=== PATIENT | female | born 1990 | race Caucasian/White ===

== ENCOUNTER 2017-12-09 19:49 | Observation (INO) | payer OTHER ==
[~2017-12-09] VITALS: Ht 162.6 cm; Wt 76.7 kg
--- NOTE | 2017-12-09 21:18 | ED GENERAL ADULT ---
History of Present Illness General Chief Complaint: General Adult Stated Complaint: "BLOOD PLATELETS LOW" PER PT Source: patient, old records Exam Limitations: no limitations Allergies Coded Allergies: No Known Allergies (12/09/17) Triage Note: PT TO TRIAGE SENT IN BY PCP FOR LOW PLATELET COUNT. PER PT WAS AT CHECK UP THIS MORNING EXPLAINING TO DOCTOR ABOUT BRUISING TO LEGS OF UNKNOWN ORIGIN. DENIES HX OF LOW PLATELET COUNT. C/O "LIGHTHEADEDNESS," X2 HOURS. Triage Nurses Notes Reviewed? yes Onset: Gradual Duration: week(s): Timing: recent history Severity: mild : No Patient currently breastfeeds: No HPI: 27yo female with hx of gastritis sent in by PCP for thrombocytopenia. PAtient states she went to her PCP's office for epigastric burning pain for the past week. She states her pain was similar to previous episodes of gastritis she has had in the past. Her primary care doctor started on omeprazole today and she reports some relief of burning pain following medication. Patient told her primary care doctor about various bruises around her body without history of trauma for the past few months. For this reason her primary care doctor ordered labs and platelets were found to be low. Patient has no history of thrombocytopenia or blood disorder. Patient states she has been feeling lightheaded for the past few hours. Patient also reports light vaginal spotting for the past 2 weeks for is not due for her menstrual cycle until 12/14/17. No epistaxis, hematuria, melena, chest pain, dyspnea. (Tawny NO,Rena Douglas) Vital Signs & Intake/Output Vital Signs & Intake/Output Vital Signs Date Time Temp Pulse Resp B/P B/P Pulse O2 O2 Flow FiO2 Mean Ox Delivery Rate 12/10 0053 96.7 88 18 112/64 98 Room Air 12/09 2315 66 20 118/62 97 Room Air 12/09 2001 97.2 72 18 107/70 98 Room Air (Lulu PIERRE,Javon Moore) Past History Travel History Traveled to [place] past 21 day No Medical History Any Pertinent Medical History? none Neurological: NONE EENT: NONE Cardiovascular: NONE Respiratory: NONE Gastrointestinal: NONE Hepatic: NONE Renal: NONE Musculoskeletal: NONE Psychiatric: NONE Endocrine: NONE Blood Disorders: NONE Cancer(s): NONE SASH STICKER/Reproductive: NONE Surgical History Surgical History: non-contributory Psychosocial History What is your primary language Gambian Tobacco Use: Never used Family History Hx Contributory? No (Rena Molina) Review of Systems Review of Systems Constitutional: Reports: see HPI. EENTM: Reports: no symptoms. Respiratory: Reports: no symptoms. Cardiovascular: Reports: no symptoms. GI: Reports: see HPI. Genitourinary: Reports: no symptoms. Musculoskeletal: Reports: no symptoms. Skin: Reports: see HPI. Neurological/Psychological: Reports: no symptoms. Hematologic/Endocrine: Reports: see HPI. Immunologic/Allergic: Reports: no symptoms. All Other Systems: Reviewed and Negative (Rena Molina) Physical Exam Physical Exam General Appearance: well developed/nourished, no apparent distress, alert, awake Head: atraumatic, normal appearance Eyes: Bilateral: normal appearance. Ears, Nose, Throat: hearing grossly normal Neck: normal inspection, supple, full range of motion Respiratory: normal breath sounds, no respiratory distress, lungs clear Cardiovascular: regular rate/rhythm Gastrointestinal: normal bowel sounds, soft, no organomegaly, mild epigastric tenderness Back: normal inspection, normal range of motion Extremities: normal inspection, normal range of motion Neurologic/Psych: awake, alert, oriented x 3 Skin: intact, ecchymosis Comments: : normal external exam, mild amount of vaginal bleeding without clots, vaginal mucosa and cervix WNL Core Measures ACS in differential dx? No CVA/TIA Diagnosis: No Sepsis Present: No Sepsis Focused Exam Completed? No (Rena Molina) Progress Differential Diagnoses I considered the following diagnoses in my evaluation of the patient: [ Thrombocytopenia, ITP, TTP, H. pylori, gastritis] Initial ED EKG: none (Rena Molina) Plan of Care: Orders Procedure Date/time Status Regular Diet 12/10 B Active Patient Data 12/[address] in observation 12/09 2350 Active Misc Message 12/09 2350 Active ED Holding Orders 12/09 2350 Active Vital Signs 12/09 2350 Active Code Status 12/09 2350 Active Add-on Test (ER Only) 12/09 2249 Active THYROID STIMULATING HORMONE 12/09 2222 Active HIV (Reflex to HIVCQ) 12/09 222 Active HEPATITIS PANEL 12/09 222 Active HUMAN BETA HCG SCREEN 12/09 222 Active FREE T4 12/09 222 Active COMPREHENSIVE METABOLIC PANEL 12/09 2202 Active CBC WITHOUT DIFFERENTIAL 12/09 2202 Complete TYPE & SCREEN (NOT X-MATCH) 12/09 2202 Complete Intake & Output 12/10 2155 Active Laboratory Tests 12/09/172221: Anion Gap 12, Estimated GFR > 60, BUN/Creatinine Ratio 14.3, Glucose 109 H, Calcium 9.5, Total Bilirubin 0.2, AST 18, ALT 15, Alkaline Phosphatase 50, Total Protein 7.0, Albumin 3.8, Globulin 3.2, Albumin/Globulin Ratio 1.2, TSH 2.070, Free T4 1.48, Total Beta HCG NEGATIVE, CBC w Diff NO MAN DIFF REQ, RBC 4.24, MCV 89.9, MCH 30.2, MCHC 33.6, RDW 12.8, MPV 15.5 H, Gran % 61.1, Lymphocytes % 30.1, Monocytes % 5.9, Eosinophils % 2.4, Basophils % 0.5, Absolute Granulocytes 4.6, Absolute Lymphocytes 2.3, Absolute Monocytes 0.4, Absolute Eosinophils 0.2, Absolute Basophils 0, Hepatitis A IgM Ab Pending, Hep Bs Antigen Pending, Hep B Core IgM Ab Conf Pending, Hepatitis C Antibody Pending, HIV 1&2 Ab Western Blot NONREACTIVE Spoke with Dr. Segura regarding this patient's abnormal labs. He recommends thyroid panel, hepatitis panel, HIV testing, H. pylori stool testing, decadron PO, inpatient observation for follow-up tomorrow. Spoke with Dr. Bryant regarding this patient's general medicine observation. Dr. Lawson agrees with the plan of care. (Rena Molina) (Lulu PIERRE,Javon Moore) Departure Departure Disposition: STILL A PATIENT Condition: Stable Clinical Impression Primary Impression: Thrombocytopenia Secondary Impressions: Vaginal spotting Referrals: Makenzie Enriquez DO (PCP/Family) Departure Forms: Customer Survey General Discharge Information Observation Note Spoke With: Du Bryant MD Physician Advisor Notified: JAVON CASTILLO DO Place Patient In: Non-ED OBS Care Area Rationale for Observation: My rational for observation is as follows [new-onset thrombocytopenia with vaginal spotting requiring repeat labs, steroid treatment, hematology consult, follow-up with H. pylori stool testing]. (Rena Molina) PA/AUTO SPECIALTY SERVICES MANAGER Co-Sign Statement Statement: ED Attending supervision documentation- [X] I saw and evaluated the patient. I have also reviewed all the pertinent lab results and diagnostic results. I agree with the findings and the plan of care as documented in the PA's/AUTO SPECIALTY SERVICES MANAGER's documentation. Patient presents for evaluation of low platelet count as part of an evaluation for easy bruising. Physical examination reveals a comfortable appearing patient in no respiratory distress. There is no indication of altered mental status. [] I have reviewed the ED Record and agree with the PA's/AUTO SPECIALTY SERVICES MANAGER's documentation. [] Additions or exceptions (if any) to the PAs/AUTO SPECIALTY SERVICES MANAGER's note and plan are summarized below: [] (Lulu PIERRE,Javon Moore) Critical Care Note Critical Care Note Critical Care Time: non-applicable (Tawny NO,Rena Douglas)
[2017-12-09 22:28] LABS: ABSOLUTE BASOPHIL COUNT 0 /CUMM (0.0-0.2); ABSOLUTE EOSINOPHIL COUNT 0.2 /CUMM (0.0-0.7); ABSOLUTE GRANULOCYTE CT 4.6 /CUMM (1.4-6.5); ABSOLUTE LYMPH COUNT 2.3 /CUMM (1.2-3.4); ABSOLUTE MONOCYTE COUNT 0.4 /CUMM (0.10-0.60); BASOPHIL % 0.5 % (0.0-2.0); EOSINOPHIL % 2.4 % (0-5); GRANULOCYTE % 61.1 % (42.2-75.2); HEMATOCRIT 38.1 % (37-47); MEAN CORPUSCULAR HGB 30.2 PG (27.0-31.0); MEAN CORPUSCULAR HGB CONC 33.6 G/DL (33.0-37.0); MEAN CORPUSCULAR VOLUME 89.9 FL (81.0-99.0); MEAN PLATELET VOLUME 15.5 FL (7.4-10.4); RBC DISTRIBUTION WIDTH 12.8 % (11.5-14.5); RED BLOOD CELL CT 4.24 /CUMM (4.20-5.40); WHITE BLOOD CELL COUNT 7.5 /CUMM (4.8-10.8)
[2017-12-09 22:48] LABS: PLATELET COUNT 42 /CUMM (130-400)
[2017-12-10 02:12] VITALS: BP 106/62
--- NOTE | 2017-12-10 02:28 | History & Physical ---
Trish Croft MD 12/10/17 0228: General Information and HPI MD Statement: I have seen and personally examined BROOKLYN NETTLES and documented this H&P. The patient is a 27 year old F who presented with a patient stated chief complaint of low platelets and bruising Source of Information: patient, family, old records Exam Limitations: no limitations History of Present Illness: This is a 27-year-old female with a past medical history significant for gastritis that comes to see us for vaginal spotting for 1 week and bruising of several months duration. The patient states that the bruising began in early September on her lower extremities. She now has some bruising as well on her arms. The patient denies any kind of injury recently. She also states that she has had vaginal "spotting" even though her menses are not due for one week. The patient is on control and states that her periods are usually very regular. She recently started a keto diet of high fat, moderate protein, low carbohydrate and states that after starting this was when the spotting began. After noticing this, she began adding carbohydrates back to her diet. The day after adding carbs, she noted that she had severe pain that was in the epigastrium and is similar to her normal gastritis associated pain. The patient states that she lost 8 pounds on this keto diet. The patient recently visited her PCP Makenzie Enriquez DO who did labs, notably hemoglobin was normal, normal iron levels, but severely decreased platelets level of 25. When this lab returned, Makenzie Enriquez DO suggested that the patient come to the [facility]. The patient states that she does feel weak and has recently had some lightheadedness even when sitting down. The patient also notes that she is recently been having migraines even though she does have a positive history throughout her life. She also notes a cough of one week's duration, no chest pain. The patient denies any other bleeding besides the vaginal spotting, no stool blood, no nausea or vomiting. The patient has no history of H. pylori infection. The patient does admit to abdominal pain and notes that it is of an "acidic" nature. She has had gastritis and she was 17 with pain mostly in the left upper quadrant. The patient recently started omeprazole for GERD with her first dose today. As stated previously, patient went to [place] in September to October. She denies any sick contacts. The patient also denies any vaginal discharge associated with the bleeding, no recent STDs, was screened 3 months ago, had a Pap smear 3 years ago which was normal, has had 1 , vaginal , no complications, no miscarriages, no abortions. No urinary symptoms. The patient states that she recently went hiking outside and [place] 1.5 weeks ago. Afterwards she was checked for ticks but notes that ticks were found on her son and her dog. She has never had a tick bite in the past. The patient also states that she had excruciating knee pain for one days duration a few days back. The patient denies any new sexual partners, no STDs. Other than the omeprazole, no new medications. Allergies/Medications Allergies: Coded Allergies: No Known Allergies (12/09/17) Past History Travel History Traveled to [place] past 21 day No Medical History Blood Transfusion Hx: No Neurological: NONE EENT: NONE Cardiovascular: NONE Respiratory: NONE Gastrointestinal: gastritis Hepatic: NONE Renal: NONE Musculoskeletal: NONE Psychiatric: NONE Endocrine: NONE Blood Disorders: NONE Cancer(s): NONE TALENT ACQUISITION PROGRAM MANAGER/Reproductive: NONE Surgical History Surgical History: non-contributory Past Family/Social History Family History Relations & Conditions if any Family history was reviewed; no changes noted. Psychosocial History Smoking Status: Never Smoked ETOH Use: occasional use Illicit Drug Use: denies illicit drug use Review of Systems Review of Systems Constitutional: Reports: no symptoms. EENTM: Reports: no symptoms. Cardiovascular: Reports: no symptoms. Respiratory: Reports: cough. GI: Reports: abdominal pain. Genitourinary: Reports: no symptoms. Musculoskeletal: Reports: joint pain. Skin: Reports: no symptoms. Neurological/Psychological: Reports: headache. Hematologic/Endocrine: Reports: bruising, bleeding. Immunologic/Allergic: Reports: no symptoms. All Other Systems: Reviewed and Negative Date of LMP: 11/16/17 Post Menopausal: No Date of Last Pap Smear: 12/11/14 Exam & Diagnostic Data Last 24 Hrs of Vital Signs/I&O Vital Signs Date Time Temp Pulse Resp B/P B/P Pulse O2 O2 Flow FiO2 Mean Ox Delivery Rate 12/10 0212 98.7 66 18 106/62 96 Room Air 12/10 0053 96.7 88 18 112/64 98 Room Air 12/09 2315 66 20 118/62 97 Room Air 12/09 2001 97.2 72 18 107/70 98 Room Air Intake & Output 12/10 0800 12/10 0000 12/09 1600 Intake Total Output Total Balance Patient 169 lb Weight Physical Exam General Appearance Alert, Oriented X3, Cooperative, No Acute Distress Skin No Rashes, scattered bruising on lower extremities with 2 bruises on her arms where she recently had IVs attempted Skin Temp/Moisture Exam: Warm/Dry Sepsis Skin Exam (color): Normal for Ethnicity HEENT Atraumatic, PERRLA, EOMI, Mucous Membr. moist/pink Neck Supple, No JVD Cardiovascular Regular Rate, Normal S1, Normal S2, No Murmurs Lungs Clear to Auscultation, Normal Air Movement Abdomen Normal Bowel Sounds, Soft, No Tenderness, No Hepatospenomegaly, No Masses Neurological Normal Speech Extremities No Clubbing, No Cyanosis, No Edema, Normal Pulses Vascular Normal Pulses, Pulses Symmetrical Reproductive (FEMALE) mild bleeding on genital exam, no clots Last 24 Hrs of Labs/Armaan: Laboratory Tests 12/09/17 2222: Anion Gap 12, Estimated GFR > 60, BUN/Creatinine Ratio 14.3, Glucose 109 H, Calcium 9.5, Total Bilirubin 0.2, AST 18, ALT 15, Alkaline Phosphatase 50, Total Protein 7.0, Albumin 3.8, Globulin 3.2, Albumin/Globulin Ratio 1.2, TSH 2.070, Free T4 1.48, Total Beta HCG NEGATIVE, CBC w Diff NO MAN DIFF REQ, RBC 4.24, MCV 89.9, MCH 30.2, MCHC 33.6, RDW 12.8, MPV 15.5 H, Gran % 61.1, Lymphocytes % 30.1, Monocytes % 5.9, Eosinophils % 2.4, Basophils % 0.5, Absolute Granulocytes 4.6, Absolute Lymphocytes 2.3, Absolute Monocytes 0.4, Absolute Eosinophils 0.2, Absolute Basophils 0, Hepatitis A IgM Ab Pending, Hep Bs Antigen Pending, Hep B Core IgM Ab Conf Pending, Hepatitis C Antibody Pending, HIV 1&2 Ab Western Blot NONREACTIVE Assessment/Plan Assessment: This is a 27-year-old female with a past medical history significant for gastritis that comes to see us for vaginal spotting for 1 week and bruising of several months duration. The patient was recently on a new diet and attributes that to the vaginal spotting. Her bruising is started 4 months ago before she went on a trip to [place]. Patient has no new medications other than omeprazole. The patient was recently on a hiking trip and notes that her family members had ticks but she did not. The patient also notes a recent history of headache, 1 day of excruciating joint pain, recent cough. The patient has no family history of bleeding disorders or cancers. Vital signs temperature 97.2, pulse rate 72, respiratory rate 18, blood pressure 107/70, 98% oxygen saturation on room air. Labs were normal except for a platelet count of 42 here a count of 25 found at her PCPs office. Her INR was found to be normal at 1.18, chem panel was found to be normal, thyroid tests normal, liver function tests normal, HIV test negative. In the ED as per recommendation by manager etl, patient was given dexamethasone 8 mg by mouth once. Patient's is placed in Gen. medical floors for observation of the following: #Thrombocytopenia likely secondary to ITP as no cause was found for patient thrombocytopenia. Patient recently started omeprazole which could potentially cause thrombocytopenia, however today was her first dose and this likely would not be reflected in today's platelet count. Additionally tick bite was considered as patient noted that she recently was hiking in the [place] nearby. Patient has no history of drug or excessive alcohol use, no liver pathology. Plan -Normal saline at a rate of 75 mL per hour -Hematology/oncology is aware and will see the patient in the morning -Hepatitis panel and LFTs -Peripheral smear -Antinuclear antibody for vasculitis/SLE Regular diet DVT prophylaxis with Alps Patient is full code As Ranked By This Provider Problem List: 1. Vaginal spotting 2. Thrombocytopenia Core Measures/Misc (03/14) Acute Coronary Syndrome ACS Diagnosis: No Congestive Heart Failure Congestive Heart Failure Diagnosis No Cerebrovascular Accident CVA/TIA Diagnosis: No VTE (View Protocol) VTE Risk Factors Acute Medical Illness No Mechanical VTE Prophylaxis d/t N/A MechProphylax Ordered No VTE Pharm Prophylaxis d/t Medical Contraindication Sepsis (View protocol) Sepsis Present: No If YES complete Sepsis Event Note If YES complete Sepsis Event Note Lillian PIERRE,Ismail 12/10/17 0324: Core Measures/Misc (03/14) Sepsis (View protocol) If YES complete Sepsis Event Note If YES complete Sepsis Event Note Resident Review Statement Resident Statement: examined this patient, discussed with paralegal internship, agreed with paralegal internship Other Findings: 27/F with PMH of gastritis who presented with a cc of vaginal spotting and scattered bruises. On October 10 she started to notice bruises on her lower extremities however she never seek medical attention. later on September she had a trip to [place]. A week ago she started high fat and protein low carb diet, soon after she noticed vaginal spotting, even though her menstrual cycle is not to for another week. She was checked by PCP who got concerned about bruises [place] [id number]. The patient was instructed to be seen in the ED. She denies any other active complaints, Hx of STDs, family history of thrombocytopenia or bleeding disorders, smoking, alcohol abuse, or illicit drug abuse. Patient denies history of tick bites, she was outdoor with the family 2 weeks ago where her son and the dog had the tick bites , however her symptoms started a while before that. Vital: Tmax 98.7, HR 66, BP 112/64, O2 97 on RA. Labs: Normal CBC except platelets 42, potassium 3.5, normal renal function, normal liver function, normal thyroid function, nonreactive HIV and negative test. Physical exam refer to interim notes. Assessment: The patient was noticed to have scattered bruises during gastritis follow-up. The bruises have been going for the past 2 months, recently became associated with vaginal spotting outside her very regular menstrual cycle. It's most likely immune thrombocytopenia, however other possible explanation such as infection need to be ruled out. For chronic gastritis, she took 1 dose of PPI earlier today, this can affect the H. pylori antigen in stool. Problem list * Thrombocytopenia * Chronic gastritis Plan: * Admitted to general medicine floor as observation * Sent for PT, PTT, LINO, hepatitis panel, & U tox * Peripheral smear * Type and screen * Repeat CBC in a.m. * Hematology consult was placed by the ED team, they will phone a.m.. -Regular diet -DVT P PPX with Alps -Du Gaspar 12/10/17 0612: Core Measures/Misc (03/14) Sepsis (View protocol) If YES complete Sepsis Event Note If YES complete Sepsis Event Note Attending MD Review Statement Attending Statement Attending MD Statement: examined this patient, discuss w/resident/PA/PARAMEDIC INSTRUCTOR, agreed w/resident/PA/PARAMEDIC INSTRUCTOR, reviewed EMR data (avail), reviewed images, amended to note Attending Assessment/Plan: CC: Low platelet count PMH: Gastritis Patient recently started ketogenic diet since last 1 week for a weight reduction. With these dietary changes she developed severe gastritis so she followed up with primary care physician today. Towards the end of the visit she mentioned that she had multiple bruising on her legs so patient's blood counts were checked and she was found to have thrombocytopenia with platelet count of 25 so she was in to ER for further evaluation. She states that she has been noticing visible bruising since September, occasionally feels lightheaded and she started vaginal spotting yesterday (not having regular menses currently, no prior missed periods). Previous lab work done was approximately 2 years back according to her. She recently traveled to [place], no tick bites, no excessive bleeding from teeth, vaginal bleeding. She was started on omeprazole yesterday. Otherwise complete ROS unremarkable. Vitals: Temperature 97.2, pulse 72, RR 18, blood pressure 107/70, saturating 98% on room air. On exam: A O 3, cooperative, no acute distress, neck supple, JVD normal, no lymphadenopathy, mucosa moist, no focal neurological deficit, no dependent edema , multiple small ecchymosis on legs and hand in various stages, no petechiae, no joint swelling, no other skin rash. CVS: S1-S2, RRR. RS: Clear to auscultate bilaterally. Abdomen: Soft, NT, ND, bowel sounds present. Vaginal examination done in ER didn't show any clots or excessive bleeding. Assessment and plan 27-year-old female came to ER for thrombocytopenia. She was noticing bruising on her legs since September but today she was following up with primary care physician for her gastritis when she mentioned about this her labs were checked and her platelet count was low. She does not have any excessive bleeding. No recent infection. Complete exam unremarkable except she has small ecchymosis on lower extremity and upper extremity in various stages. He has significant thrombocytopenia needs further workup. Hematology was called from ER who suggested observation for further workup. Most likely it could be ITP. She was started on dexamethasone in ER. + Thrombocytopenia + Gastritis - Place in observation on general medicine - Obtain PT/PTT INR - Peripheral smear - Follow-up hepatitis and HIV panel - Type and screen - Hematology consult
[2017-12-10 06:13] LABS: ABSOLUTE BASOPHIL COUNT 0 /CUMM (0.0-0.2); ABSOLUTE EOSINOPHIL COUNT 0 /CUMM (0.0-0.7); ABSOLUTE GRANULOCYTE CT 4.6 /CUMM (1.4-6.5); ABSOLUTE LYMPH COUNT 0.6 /CUMM (1.2-3.4); ABSOLUTE MONOCYTE COUNT 0.1 /CUMM (0.10-0.60); BASOPHIL % 0.1 % (0.0-2.0); EOSINOPHIL % 0.3 % (0-5); GRANULOCYTE % 86.7 % (42.2-75.2); HEMATOCRIT 38.6 % (37-47); MEAN CORPUSCULAR HGB 30.2 PG (27.0-31.0); MEAN CORPUSCULAR HGB CONC 33.8 G/DL (33.0-37.0); MEAN CORPUSCULAR VOLUME 89.4 FL (81.0-99.0); MEAN PLATELET VOLUME 12.7 FL (7.4-10.4); PLATELET COUNT 35 /CUMM (130-400); RBC DISTRIBUTION WIDTH 12.7 % (11.5-14.5); RED BLOOD CELL CT 4.32 /CUMM (4.20-5.40); WHITE BLOOD CELL COUNT 5.3 /CUMM (4.8-10.8)
[2017-12-10 06:22] LABS: PT 13.7 SEC (9.4-12.5); PTT 25 SEC (25-37)
[2017-12-10 06:30] VITALS: BP 106/64
--- NOTE | 2017-12-10 07:01 | Cons- Hematology ---
General Information and HPI Consulting Request Date of Consult: 12/10/17 Requested By: Du Bryant MD Reason for Consult: Thrombocytopenia Source of Information: patient, old records Exam Limitations: no limitations History of Present Illness: Ms. Fox is a 27-year-old female with history of GERD who presented to the [facility] ER with thrombocytopenia. She was seen by her PCP and had blood work demonstrating platelet count of 25,000. She was sent to the hospital for evaluation. She has been feeling well until about 1 week ago when she started on her keto diet. She stated having her gastritis symptoms again. She had some epigastric pain. She states she had similar pain in the past. She did have endoscopy when she was 17 in [place]. She was noted to have gastritis at the time. She has not needed medication for the last 5 years. She presented to her PCP for gastritis evaluation. During evaluation, she did report to her PCP that she had bruising since September 2017. Bruising is spontaneous. Bruising is mostly in her extremities. She also has vaginal spotting. She denies any other bleeding such as blood in stool, blood in urine, hematemesis, hemoptysis, or epistaxis. She does not have any bleeding gum. She has not taken any new medication. She was started on omeprazole yesterday by her PCP. She has not notice any changes in her breathing. She denies any diarrhea. She has not been sick recently. She did not that she found ticks on her dog and son. She did go hiking recently. She denies any tick bites. She has not had fever or chills. She has not notice any rashes. Of note, she did go to [place] in September for a month. Bruising started prior to going to [place]. She felt well in [place]. She denies any sick contact. She denies any previous history of low platelet or blood count. She does not have a significant family history of blood disorder or cancer. She rarely drink EtOH. She does not smoke. She denies illicit drug usage. 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 Allergies/Medications Allergies: Coded Allergies: No Known Allergies (12/09/17) Home Med List: Norethindrone-E.estradiol-Iron (Junel Fe 1 MG-20 Mcg Tablet) 1 MG-20 MCG (21)/75 MG (7) TABLET CONTROL (Reported) Omeprazole 40 MG CAPSULE.DR PARSONS (Reported) Current Medications: Current Medications Sig/Matteo Start time Last Medication Dose Route Stop Time Status Admin Dexamethasone 0 .STK-MED ONE 12/09 2312 DC PO Dexamethasone 8 MG ONCE ONE 12/09 2300 DC 12/09 PO 12/09 2301 2315 Guaifenesin 600 MG Q12 12/10 0900 CAN PO Potassium Chloride 40 MEQ ONCE ONE 12/10 0330 DC 12/10 PO 12/10 0331 0328 Sodium Chloride 1,000 ML Q13H 12/10 0330 AC 12/10 IV 12/10 1629 0328 Review of Systems Review of Systems Constitutional: Denies: chills, fever, weakness, unexplained weight loss. EENTM: Denies: blurred vision, epistaxis. Cardiovascular: Denies: chest pain, orthopena, palpitations, peripheral edema. Respiratory: Denies: hemoptysis, short of breath. GI: Reports: abdominal pain. Denies: diarrhea, melena, nausea, bloody stool, changes in stool, vomiting. Genitourinary: Denies: dysuria, hematuria. Musculoskeletal: Denies: back pain. Skin: Reports: see HPI. Neurological/Psychological: Reports: headache. Denies: anxiety, numbness, paresthesia, tingling, tremors. Hematologic/Endocrine: Reports: bruising, bleeding. Denies: polyuria, polydipsia. Immunologic/Allergic: Denies: HIV/AIDS. All Other Systems: Reviewed and Negative Past History Travel History Traveled to [place] past 21 day No Medical History Blood Transfusion Hx: No Neurological: NONE EENT: NONE Cardiovascular: NONE Respiratory: NONE Gastrointestinal: gastritis Hepatic: NONE Renal: NONE Musculoskeletal: NONE Psychiatric: NONE Endocrine: NONE Blood Disorders: NONE Cancer(s): NONE SWEEP MOLDER/Reproductive: NONE Surgical History Surgical History: non-contributory, wisdom tooth extraction Psychosocial History Smoking Status: Never Smoked ETOH Use: occasional use Illicit Drug Use: denies illicit drug use Exam & Diagnostic Data Vital Signs and I&O Vital Signs Date Time Temp Pulse Resp B/P B/P Pulse O2 O2 Flow FiO2 Mean Ox Delivery Rate 12/10 0630 98.5 58 18 106/64 97 Room Air 12/10 0212 98.7 66 18 106/62 96 Room Air 12/10 0053 96.7 88 18 112/64 98 Room Air 12/09 2315 66 20 118/62 97 Room Air 12/09 2001 97.2 72 18 107/70 98 Room Air Intake & Output 12/10 0800 12/10 0000 12/09 1600 Intake Total 390 Output Total Balance 390 Intake, IV 150 Intake, Oral 240 Patient 76.657 kg Weight Physical Exam General Appearance: well developed/nourished, no apparent distress, alert, awake , comfortable Head: atraumatic, normal appearance Eyes: Bilateral: PERRL, EOMI. 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 Skin: ecchymosis (scatter in BLE and BUE) Lymphatic: no lymphadenopathy Last 48 Hours of Lab Results: Laboratory Tests 12/10 12/09 0559 2222 Chemistry Sodium (137 - 145 mmol/L) 142 144 Potassium (3.5 - 5.1 mmol/L) 4.2 3.5 Chloride (98 - 107 mmol/L) 106 105 Carbon Dioxide (22 - 30 mmol/L) 27 27 Anion Gap (5 - 16) 9 12 BUN (7 - 17 mg/dL) 9 10 Creatinine (0.5 - 1.0 mg/dL) 0.7 0.7 Estimated GFR (>60 ml/min) > 60 > 60 BUN/Creatinine Ratio (7 - 25 %) 12.9 14.3 Glucose (65 - 99 mg/dL) 109 H Calcium (8.4 - 10.2 mg/dL) 9.5 Total Bilirubin (0.2 - 1.3 mg/dL) 0.2 AST (14 - 36 U/L) 18 ALT (9 - 52 U/L) 15 Alkaline Phosphatase (<127 U/L) 50 Total Protein (6.3 - 8.2 g/dL) 7.0 Albumin (3.5 - 5.0 g/dL) 3.8 Globulin (1.9 - 4.2 gm/dL) 3.2 Albumin/Globulin Ratio (1.1 - 2.2 %) 1.2 TSH (0.270 - 4.200 uIU/mL) 2.070 Free T4 (0.79 - 2.35 ng/dL) 1.48 Total Beta HCG (NEGATIVE) NEGATIVE Coagulation PT (9.4 - 12.5 SEC) 13.7 H INR (0.90 - 1.19) 1.25 H APTT (25 - 37 SEC) 25 Hematology CBC w Diff MAN DIFF ORDERED NO MAN DIFF REQ WBC (4.8 - 10.8 /CUMM) 5.3 7.5 RBC (4.20 - 5.40 /CUMM) 4.32 4.24 Hgb (12.0 - 16.0 G/DL) 13.1 12.8 Hct (37 - 47 %) 38.6 38.1 MCV (81.0 - 99.0 FL) 89.4 89.9 MCH (27.0 - 31.0 PG) 30.2 30.2 MCHC (33.0 - 37.0 G/DL) 33.8 33.6 RDW (11.5 - 14.5 %) 12.7 12.8 Plt Count (130 - 400 /CUMM) 35 L 42 L MPV (7.4 - 10.4 FL) 12.7 H 15.5 H Gran % (42.2 - 75.2 %) 86.7 H 61.1 Lymphocytes % (20.5 - 51.1 %) 11.1 L 30.1 Monocytes % (1.7 - 9.3 %) 1.8 5.9 Eosinophils % (0 - 5 %) 0.3 2.4 Basophils % (0.0 - 2.0 %) 0.1 0.5 Absolute Granulocytes (1.4 - 6.5 /CUMM) 4.6 4.6 Segmented Neutrophils (42.2 - 75.2 %) 84 H Absolute Lymphocytes (1.2 - 3.4 /CUMM) 0.6 L 2.3 Lymphocytes (20.5 - 51.1 %) 13 L Monocytes (1.7 - 9.3 %) 3 Absolute Monocytes (0.10 - 0.60 /CUMM) 0.1 0.4 Absolute Eosinophils (0.0 - 0.7 /CUMM) 0 0.2 Absolute Basophils (0.0 - 0.2 /CUMM) 0 0 Platelet Estimate (ADEQUATE) DECREASED Polychromasia 1+ Poikilocytosis 2+ Ovalocytes 1+ Stomatocytes 1+ Immunology LINO Titer Pending Anti-Nuclear Antibody Pending Other Body Source Fld Total RBCs Counted (%) 100 Serology Hepatitis A IgM Ab (NONREACTIVE) Pending Hep Bs Antigen (NONREACTIVE) Pending Hep B Core IgM Ab Conf (NONREACTIVE) Pending Hepatitis C Antibody (NONREACTIVE) Pending HIV 1&2 Ab Western Blot (NONREACTIVE) NONREACTIVE Assessment/Plan Assessment: Ms. Fox is a 27-year-old female with history of GERD who presented to the [facility] ER with thrombocytopenia. She was seen by her PCP and had blood work demonstrating platelet count of 25,000. She has been feeling well. She does have gastritis symptoms. She does not have any obvious significant bleeding. She does have spontaneous bruising in the extremities. She has vaginal spotting. She has no petechiae. She has no mucosal bleeding. She is not on any new medication. She has not been ill recently. She did go to [place] recently but has no signs or symptoms of infection. On presentation to the [facility] ER, her platelet count did improve to 42,000. Repeated blood work this morning demonstrated platelet count of 35,000. She was given 8 mg of dexamethasone once. Blood work has been sent for HIV and hepatitis. HIV is negative. TSH is normal. Liver function is normal. PT is slightly elevated. PTT is normal. Her presentation is concerning for likely ITP. She has no other obvious explanation for thrombocytopenia. She does have gastritis which makes H. Pylori also a potential etiology. H. Pylori have been associated with ITP. Stool H. pylori antigen is currently being evaluated. It is reasonable to empirically start the patient on high dose steroid. for ITP. Further work up will be depend on her response. She may be started on dexamethasone 40 mg daily for 4 days. Her platelet count did decrease this morning but there is some clumping on the smear. She does have giant platelet on her peripheral smear. Given the drop in her platelet count, she should have CBC checked later today. If she demonstrate stability or improvement, she may likely be able to follow up as outpatient. She does know that she should watch out for increasing in bruising and bleeding. She will return to the hospital if she does have symptoms. Recommendations: Thrombocytopenia: -Dexamethasone 40 mg daily x 4 days -Follow up stool H. Pylori -Follow up hepatitis evaluation -Monitor CBC -Potentially able to discharge for follow up if platelet count stabilize later today -Follow up in clinic next week Problem List: 1. Thrombocytopenia Other Findings/Comments: Please call [phone] with any questions or concerns. Consult Acknowledgment - Thank you for your consult request.
[2017-12-10] MEDS ORDERED: OMEPRAZOLE40 M1 (07:27)
[2017-12-10] MEDS ORDERED: JUNEL FE 1 MG-1 EACH (07:27)
[2017-12-10 13:33] LABS: ABSOLUTE BASOPHIL COUNT 0 /CUMM (0.0-0.2); ABSOLUTE EOSINOPHIL COUNT 0 /CUMM (0.0-0.7); ABSOLUTE GRANULOCYTE CT 5.1 /CUMM (1.4-6.5); ABSOLUTE LYMPH COUNT 0.4 /CUMM (1.2-3.4); ABSOLUTE MONOCYTE COUNT 0 /CUMM (0.10-0.60); BASOPHIL % 0 % (0.0-2.0); EOSINOPHIL % 0 % (0-5); HEMATOCRIT 39.3 % (37-47); MEAN CORPUSCULAR HGB 30.5 PG (27.0-31.0); MEAN CORPUSCULAR HGB CONC 33.8 G/DL (33.0-37.0); MEAN CORPUSCULAR VOLUME 90.3 FL (81.0-99.0); MEAN PLATELET VOLUME 13.1 FL (7.4-10.4); RBC DISTRIBUTION WIDTH 12.8 % (11.5-14.5); RED BLOOD CELL CT 4.36 /CUMM (4.20-5.40); WHITE BLOOD CELL COUNT 5.6 /CUMM (4.8-10.8)
--- NOTE | 2017-12-10 13:33 | PN- Att Addend ---
Attending Addendum Attending Brief Note Patient seen and examined. No issues overnight reported by nursing staff. Remains afebrile and hemodynamically stable. Resting comfortably and not in any acute distress. Denies any abnormal bleeding. She has no worsening of the ecchymotic areas on her legs. There are very small in size. Hematology consultation appreciated. Vital Signs Date Time Temp Pulse Resp B/P B/P Pulse O2 O2 Flow FiO2 Mean Ox Delivery Rate 12/10 0630 98.5 58 18 106/64 97 Room Air 12/10 0212 98.7 66 18 106/62 96 Room Air 12/10 0053 96.7 88 18 112/64 98 Room Air 12/09 2315 66 20 118/62 97 Room Air 12/09 2002 97.2 72 18 107/70 98 Room Air General appearance: Well-developed and not in any acute distress. HEENT: Anicteric, no pallor, pupils equal and reactive. Neck: Supple with no jugular venous distention. Heart: S1-S2 regular with no audible murmur. Lungs: Adequate and symmetric air entry bilaterally with no added sounds. Abdomen: Nondistended with normal bowel sounds. Soft, nontender with no palpable masses. Extremities: No pedal edema. No cyanosis. Skin: Mild ecchymotic areas lower extremities. Problems: 1. Thrombocytopenia; likely ITP. Follow-up repeat CBC this afternoon. If platelet count is improving she may be discharged home on dexamethasone as recommended by the hematology service and follow-up with repeat CBC next week and with the hematology service.
[2017-12-10 13:53] LABS: GRANULOCYTE % 92.1 % (42.2-75.2); PLATELET COUNT 38 /CUMM (130-400)
[2017-12-10 14:12] VITALS: BP 104/67
[2017-12-10] MEDS ORDERED: DEXAMETHASONE4 M1 PO (14:24)
--- NOTE | 2017-12-10 14:27 | Patient Discharge Instructions ---
Discharge Instructions General Discharge Information You were seen/treated for: ITP Low platelet count Special Instructions: 1. Please take medication as prescribed 2. Please follow up with the rivet sorter. You have been given a referal 3. If you experience any large bruises or bleeding please immediately return to the emergency department Diet Continue normal diet: Yes Acute Coronary Syndrome Inclusion Criteria At DC or during hospital stay patient has or had the following: ACS DIAGNOSIS No Discharge Core Measures Meds if any: Prescribed or Continued at Discharge Meds if any: NOT Prescribed or Continued at Discharge Congestive Heart Failure Inclusion Criteria At DC or during hospital stay patient has or had the following: CHF DIAGNOSIS No Discharge Core Measures Meds if any: Prescribed or Continued at Discharge Meds if any: NOT Prescribed or Continued at Discharge Cerebrovascular accident Inclusion Criteria At DC or during hospital stay patient has or had the following: CVA/TIA Diagnosis No Discharge Core Measures Meds if any: Prescribed or Continued at Discharge Meds if any: NOT Prescribed or Continued at Discharge Venous thromboembolism Inclusion Criteria VTE Diagnosis No VTE Type NONE VTE Confirmed by (Test) NONE Discharge Core Measures - Per Current guidelines, there needs to be overlap - treatment for the first 5 days of Warfarin therapy. - If discharged on Warfarin prior to 5 days of - overlap therapy, the patient will need to be - assessed for post discharge needs including - *Post discharge parental anticoagulation - *Warfarin and/or parental anticoagulation education - *Follow up date to check INR post discharge At least 5 days overlap therapy as Inpatient No Meds if any: Prescribed or Continued at Discharge Note: Overlap Therapy is Warfarin and Anticoagulant Meds if any: NOT Prescribed or Continued at Discharge
[2017-12-10 22:34] VITALS: BP 108/56
[2017-12-11 06:30] VITALS: BP 90/50
[2017-12-11 07:39] VITALS: BP 108/64
[2017-12-11 08:16] LABS: ABSOLUTE BASOPHIL COUNT 0 /CUMM (0.0-0.2); ABSOLUTE EOSINOPHIL COUNT 0 /CUMM (0.0-0.7); ABSOLUTE MONOCYTE COUNT 0.8 /CUMM (0.10-0.60); EOSINOPHIL % 0 % (0-5)
[2017-12-11 08:47] LABS: ABSOLUTE GRANULOCYTE CT 12.6 /CUMM (1.4-6.5); ABSOLUTE LYMPH COUNT 1.2 /CUMM (1.2-3.4); BASOPHIL % 0.1 % (0.0-2.0); HEMATOCRIT 39.8 % (37-47); MEAN CORPUSCULAR HGB 30.3 PG (27.0-31.0); MEAN CORPUSCULAR VOLUME 89.1 FL (81.0-99.0); MEAN PLATELET VOLUME 13.1 FL (7.4-10.4); RBC DISTRIBUTION WIDTH 12.7 % (11.5-14.5); RED BLOOD CELL CT 4.46 /CUMM (4.20-5.40)
--- NOTE | 2017-12-11 08:49 | PN- Housestaff ---
See Addendum Subjective Follow-up For: ITP Subjective: no new complaints thrombocytopenia improved after steroids, leukocytosis from steroids, no active bleeding Review of Systems Constitutional: Reports: see HPI. Objective Last 24 Hrs of Vital Signs/I&O Vital Signs Date Time Temp Pulse Resp B/P B/P Pulse O2 O2 Flow FiO2 Mean Ox Delivery Rate 12/11 0739 108/64 12/11 0630 98.0 56 18 90/50 95 Room Air 12/10 2234 98.9 64 18 108/56 98 Room Air 12/10 1412 98.4 71 18 104/67 98 Room Air Intake & Output 12/11 1600 12/11 0800 12/11 0000 Intake Total 490 250 Output Total Balance 490 250 Intake, IV 10 10 Intake, Oral 480 240 Number 0 0 Bowel Movements Physical Exam General Appearance: Alert, Oriented X3, Cooperative, No Acute Distress Cardiovascular: Regular Rate, Normal S1, Normal S2, No Murmurs Lungs: Clear to Auscultation, Normal Air Movement Abdomen: Normal Bowel Sounds, Soft, No Tenderness, No Masses Extremities: No Clubbing, No Cyanosis, No Edema, Normal Pulses Current Medications: Current Medications Sig/Matteo Start time Last Medication Dose Route Stop Time Status Admin Dexamethasone 40 MG DAILY 12/10 0900 AC 12/11 PO 12/13 0901 0736 Omeprazole 40 MG DAILY AC 12/10 0930 AC 12/11 PO 0626 Patient Medication 1 ED ONE ONE 12/10 1400 DC Teaching ED 12/10 1401 Sodium Chloride 1,000 ML Q13H 12/10 0330 DC 12/10 IV 12/10 1629 0328 Last 24 Hrs of Lab/Armaan Results Last 24 Hrs of Labs/Mics: Laboratory Tests 12/11/17 0651: CBC w Diff NO MAN DIFF REQ, RBC 4.46, MCV 89.1, MCH 30.3, MCHC 34.0, RDW 12.7, MPV 13.1 H, Gran % 85.9 H, Lymphocytes % 8.3 L, Monocytes % 5.7, Eosinophils % 0, Basophils % 0.1, Absolute Granulocytes 12.6 H, Absolute Lymphocytes 1.2, Absolute Monocytes 0.8 H, Absolute Eosinophils 0, Absolute Basophils 0 12/10/17 1306: CBC w Diff NO MAN DIFF REQ, RBC 4.36, MCV 90.3, MCH 30.5, MCHC 33.8, RDW 12.8, MPV 13.1 H, Gran % 92.1 H, Lymphocytes % 7.4 L, Monocytes % 0.5 L, Eosinophils % 0, Basophils % 0, Absolute Granulocytes 5.1, Absolute Lymphocytes 0.4 L, Absolute Monocytes 0 L, Absolute Eosinophils 0, Absolute Basophils 0 Assessment/Plan Assessment: 27 year old female with a past medical history significant for gastritis that comes to see us for vaginal spotting for 1 week and bruising of several months duration. The patient was recently on a new diet and attributes that to the vaginal spotting. Her bruising is started 4 months ago before she went on a trip to [place] and was found to be thrombocytopenic on admissions Thrombocytopenia likely secondary to ITP No platelet transfusion required Possible PPI related, no history of drug or excessive alcohol use, no liver pathology Continue decadron 40mg x 3 days Outpatient follow up with hematology LFTs wnl Regular diet DVT prophylaxis with Alps Patient is full code Stable for discharge on decadron with hematology follow up Problem List: 1. Thrombocytopenia Pain Ratin Pain Location: n/a Pain Goal: Pain 4 or less Pain Plan: prn Tomorrow's Labs & Rationales: cbc, wednesday 12/13
[2017-12-11 09:07] LABS: WHITE BLOOD CELL COUNT 14.7 /CUMM (4.8-10.8)
[2017-12-11 09:23] LABS: GRANULOCYTE % 85.9 % (42.2-75.2); PLATELET COUNT 50 /CUMM (130-400)
[2017-12-11] MEDS ORDERED: DEXAMETHASONE4 M1 PO (10:47)
== END 2017-12-11 11:56 ==
LOC: ERH 19:49 → 2NB 23:50 → ERHI 23:50 → 2NB 23:50 → ENRESERV 12-10 00:40 → 2NB 12-10 01:06
PROVIDERS: Internal Medicine; Physician Assistant; Student in an Organized Health Care Education/Training Program
DX: D69.6 Thrombocytopenia, unspecified (principal); K29.50 Unspecified chronic gastritis without bleeding; D72.829 Elevated white blood cell count, unspecified; Z79.899 Other long term (current) drug therapy
CPT/HCPCS: 87338; 36592; 80307; 82436; 87389; G0378